=== PATIENT | female | born 1975 | race Two or more races ===

== ENCOUNTER 2018-09-23 22:46 | Emergency (ER) | payer MEDICAID, OTHER ==
[~2018-09-23] VITALS: Ht 154.9 cm; Wt 77.1 kg
--- NOTE | 2018-09-23 23:02 | NUR ---
BIB DTR FOR C/O WEAKNESS, DIZZINESS , BLURRED VISSION AND "SPINE PAIN " X 3 DAYS. VSS. PLACED ON AMONITOR , WILL CONT TO MONITOR ,
[2018-09-23] MEDS ORDERED: KETOROLAC TROMETHAMINE 15 MG/ML VIAL ONE (23:06)
[2018-09-23 23:18] LABS: BASOPHILS # (AUTO) 0.1 /CMM (0.0-0.2); BASOPHILS % (AUTO) 0.6 % (0.0-2.0); EOSINOPHILS % (AUTO) 0.9 % (0.0-6.0); HEMATOCRIT 37 % (33-45); HEMOGLOBIN 12.6 g/dL (11.5-14.8); LYMPHOCYTES # (AUTO) 1.6 /CMM (0.8-4.8); LYMPHOCYTES % (AUTO) 17.4 % (20.0-44.0); MEAN CORPUSCULAR HGB CONC 34 g/dl (31.0-36.0); MEAN CORPUSCULAR VOLUME 90 fL (82-100); MONOCYTES # (AUTO) 0.9 /CMM (0.1-1.30); MONOCYTES % (AUTO) 9.7 % (2.0-12.0); NEUTROPHILS # (AUTO) 6.4 /CMM (1.8-8.9); NEUTROPHILS % (AUTO) 71.4 % (43.0-81.0); PLATELET COUNT (AUTO) 329 /CMM (150-450); RED BLOOD CELL COUNT(AUTO) 4.14 MIL/uL (4.0-5.2)
[2018-09-23 23:25] LABS: CALCIUM, SERUM 8.7 mg/dL (8.5-10.1); CREATININE 0.5 mg/dL (0.6-1.3); POTASSIUM 4.3 mmol/L (3.5-5.1)
[2018-09-23] MEDS ORDERED: KETOROLAC TROMETHAMINE INJ 30 MG/ML VIAL IV ONE (23:30)
[2018-09-23] MEDS ORDERED: IV NS 0.9% 1,000 ML BAG IV ONE (23:30)
--- NOTE | 2018-09-23 23:46 | NUR ---
Patient discharged to home in stable condition. Rx and Written and verbal after care instructions given. Patient verbalizes understanding of instruction.
[2018-09-23 23:47] VITALS: BP 151/88
== END 2018-09-23 23:49 | disposition home or self-care (01) ==
LOC: ER 22:50
DX: M79.10 Myalgia, unspecified site (principal); D64.9 Anemia, unspecified
CPT/HCPCS: 36415; 80048; 85025; 96374; 99283; J1885; J7030

== ENCOUNTER 2019-02-22 15:50 | Emergency (ER) | payer OTHER ==
[~2019-02-22] VITALS: Ht 154.9 cm; Wt 82.6 kg
[2019-02-22 16:24] VITALS: BP 145/92
--- NOTE | 2019-02-22 16:49 | NUR ---
Patient discharged to home in stable condition. Written and verbal after care instructions given. Patient verbalizes understanding of instruction.
== END 2019-02-22 16:51 | disposition home or self-care (01) ==
LOC: ER 15:53
DX: J40 Bronchitis, not specified as acute or chronic (principal); D64.9 Anemia, unspecified

== ENCOUNTER 2020-03-05 01:34 | Emergency (ER) | payer OTHER ==
[~2020-03-05] VITALS: Ht 154.9 cm; Wt 85.7 kg
[2020-03-05 02:05] VITALS: BP 153/83
--- NOTE | 2020-03-05 02:21 | NUR ---
Patient discharged to home in stable condition. Written and verbal after care instructions given. Patient verbalizes understanding of instruction.
== END 2020-03-05 02:21 | disposition home or self-care (01) ==
LOC: ER 01:38
DX: R05 Cough (principal); D64.9 Anemia, unspecified

== ENCOUNTER 2022-05-21 22:44 | Emergency (ER) | payer MEDICAID, OTHER ==
[~2022-05-21] VITALS: Ht 154.9 cm; Wt 77.1 kg
--- NOTE | 2022-05-22 00:13 | NUR ---
BIBHUSBAN FROM HOME C/O COUGH, SORE THROAT X5 DAYS. PT A/OX4. TOLERATING R/A WELL WITH NO RESP DISTRESS. SAFETY MEASURES IN PLACE.
[2022-05-22] MEDS ORDERED: BENZONATATE 100 MG CAPSULE PO PRN (01:00)
--- NOTE | 2022-05-22 01:11 | NUR ---
SHERIFF DEPUTY AT PT'S BEDSIDE
[2022-05-22] MEDS ORDERED: BENZONATATE 100 MG CAPSULE PO ONE (01:14)
[2022-05-22] MEDS ORDERED: BENZ-13 PO (02:32)
[2022-05-22] MEDS ORDERED: ALBU18HF2 INH (02:32)
--- NOTE | 2022-05-22 02:43 | NUR ---
Patient discharged to home in stable condition. Written and verbal after care instructions given. Patient verbalizes understanding of instruction. PT ambulatory with a steady gait
[2022-05-22 02:44] VITALS: BP 128/75
== END 2022-05-22 02:44 | disposition home or self-care (01) ==
LOC: ER 22:47
DX: R05.9 Cough, unspecified (principal)
CPT/HCPCS: 71045-TC